=== PATIENT | male | born 1945 | race Caucasian/White ===

== ENCOUNTER 2017-03-27 13:00 | Inpatient (IN) | payer MEDICARE, OTHER ==
[~2017-03-27] VITALS: Ht 175.3 cm; Wt 112.9 kg
--- NOTE | ~2017-03-27 | DS ---
PATIENT'S NAME: VICENTE VENEGAS [facility] AGE: 71 Y [address] ROOM: [place] [address] LOCATION: [facility] ADMIT DATE: 04/01/2017 Discharge Summary DISCHARGE DATE: 04/03/2017 FAMILY PHYSICIAN: Floyd Wilson ATTENDING PHYSICIAN: Rashaun Kenny PRIMARY DIAGNOSIS: Degenerative joint disease of the right knee. SECONDARY DIAGNOSES: 1. Hypertension. 2. Obstructive sleep apnea. 3. Rheumatoid arthritis. 4. History of melanoma. 5. Chronic obstructive pulmonary disease. 6. Coronary artery disease. 7. Benign prostatic hypertrophy. 8. History of myocardial infarction x2. PROCEDURE PERFORMED: Right total knee arthroplasty. HISTORY: The patient is a 71-year-old male, who presents with advanced right knee degenerative joint disease and associated severely compromised activities of daily living. The patient has decided to proceed with total knee arthroplasty after having been thoroughly counseled regarding the risks, benefits, limitations and alternatives. Please refer to the outpatient clinic notes and admission history and physical for this patient. HOSPITAL COURSE: The patient underwent a right total knee arthroplasty on 04/01/2017 without complications. General endotracheal anesthesia plus adductor canal block plus periarticular local anesthesia was utilized. The patient received 24 hours of perioperative prophylactic antibiotics and remained hemodynamically stable, neurovascularly intact throughout the entire hospital course. The postoperative prophylactic deep venous thrombosis prophylaxis consisted of aspirin 325 mg, early mobilization and pneumatic compression devices. Daily physical therapy for gait training, transfer training range of motion and quadriceps isometric exercises were received. The patient progressed well in physical therapy. On the date of discharge, 04/03/2017, the incision at the knee was healing well and showed no signs of infection. DISPOSITION: Home. DISCHARGE ACTIVITY: The patient is to bear weight as tolerated with range of motion and quadriceps isometric exercises as instructed. The operative extremity is to be elevated at least 90% of the day. There is to be sterile PATIENT'S NAME: VICENTE VENEGAS [facility] AGE: 71 Y [address] ROOM: [place] [address] LOCATION: [facility] ADMIT DATE: 04/01/2017 Discharge Summary DISCHARGE DATE: 04/03/2017 FAMILY PHYSICIAN: Floyd Wilson ATTENDING PHYSICIAN: Rashaun Kenny 4x4 gauze dressings to the incision daily. Dr. Kenny is to be notified immediately if there is any increased pain, fevers, chills erythema or drainage. DISCHARGE MEDICATIONS: 1. Aspirin 325 mg 1 tab p.o. daily for 30 days for postoperative DVT prophylaxis. 2. Hydromorphone 2 mg 1 to 2 tabs p.o. every 4 hours p.r.n. for pain. 3. Diazepam 5 mg 1/2 to 1 tab p.o. every 6 hours p.r.n. for muscle spasms. The patient was then instructed to continue all his preadmission medications as instructed by his internal medicine physician. FOLLOWUP: Followup appointment is to be with Dr. Kenny's office on 04/08/2017 for his initial postoperative evaluation with x-rays and staple removal at that time. RADHA DIAMOND PA-C FOR MD NAHOMY AGUAYO/olivia /[id number] d: 04/08/17 2354 t: 04/09/17 0829, DISCHARGE SUMMARY
--- NOTE | ~2017-03-27 | OR ---
PATIENT'S NAME: PAUL VENEGAS [facility] AGE: 71 Y [address] ROOM: [place] [address] LOCATION: [facility] ADMIT DATE: 04/01/2017 OR/Procedure Report DISCHARGE DATE: FAMILY PHYSICIAN: Floyd Wilson ATTENDING PHYSICIAN: ZULEIMA SAUL SURGEON: Zuleima Saul MD OCEAN CLAM BOAT CAPTAIN: 1. LOU Licona. 2. Richi Tejada CST/SALES DEPARTMENT SUPERVISOR. DATE OF PROCEDURE: 04/01/2017 PRE-OP DIAGNOSIS: Degenerative joint disease right knee. POST-OP DIAGNOSIS: Degenerative joint disease right knee. OPERATION: Right total knee arthroplasty with computer navigation. ANESTHESIA: General endotracheal anesthesia plus adductor canal block plus periarticular local anesthesia (ropivacaine with epinephrine and Toradol). ESTIMATED BLOOD LOSS: Less than 10 mL. DRAIN: None. SPECIMEN: None. COMPLICATIONS: None. IMPLANT SYSTEM: Baltazar Triathlon Size 5 right posterior stabilized femoral component Size 5 universal modular tibial baseplate 13 mm posterior stabilized size 5 X3 tibial polyethylene insert 35 mm asymmetric X3 patella component(triple pegged). INDICATIONS FOR SURGERY: Paul is a 71-year-old male, who presents with advanced right knee degenerative joint disease and associated severely compromised activities of daily living. The patient has decided to proceed with knee replacement after having been thoroughly counseled regarding the associated risks, benefits, and limitations. We have specifically reviewed the risks and implications of infection, deep venous thrombosis, pulmonary embolism, mortality, neurovascular complications, blood transfusion (and associated potential for disease transmission or transfusion reaction), stiffness, instability, mechanical deterioration of the components (due to wear and or loosening), and the potential need for revision. We have also emphasized the importance of active involvement and compliance with post- operative physical therapy as a means of optimizing range of motion and PATIENT'S NAME: PAUL VENEGAS [facility] AGE: 71 Y [address] ROOM: [place] [address] LOCATION: [facility] ADMIT DATE: 04/01/2017 OR/Procedure Report DISCHARGE DATE: FAMILY PHYSICIAN: Floyd Wilson ATTENDING PHYSICIAN: ZULEIMA SAUL functional recovery. Informed consent has been granted. DESCRIPTION OF PROCEDURE: The patient was positioned supine after administration of anesthesia and prophylactic antibiotics. A well-padded pneumatic tourniquet was placed around the right proximal thigh, and the right lower extremity was prepped and draped with vigilant sterile technique. The patient's name as well as the intended operative side and procedure were confirmed with a verbal time-out involving myself, the circulating nurse, the scrub nurse, and the anesthesiologist. Examination under anesthesia demonstrated no active skin lesions or masses. There was a moderate effusion. There was no erythema. There was no abnormal warmth. Range of motion under anesthesia was from an 8-degree flexion contracture to 125 degrees of flexion. There was no ligamentous insufficiency. The right lower extremity was elevated and exsanguinated with an Esmarch wrap, and the pneumatic tourniquet was inflated to 300mmHg. The knee was approached through a longitudinal midline incision. A medial parapatellar arthrotomy was performed and the patella was everted. Examination of the joint space demonstrated a moderate amount of benign-appearing translucent synovial fluid. There was mild generalized non-proliferative synovitis. The anterior cruciate ligament was attenuated, but intact. There were large osteophytes at the intercondylar notch. The posterior cruciate ligaments were intact. There were small osteophytes at the superior and inferior margins of the patella as well as the superior, medial, and lateral margins of the femoral trochlea. There was high-grade partial-thickness articular cartilage loss throughout the majority of the patella. There was full-thickness loss of articular cartilage involving 80% of the medial femoral condyle and a 2.5 x 3 cm diameter region at the medial aspect of the medial tibial plateau. There was a 1 cm diameter region of high-grade partial-thickness articular cartilage loss at the posterior medial aspect of the lateral femoral condyle. There were moderate- sized osteophytes at the medial and lateral femoral condyles. There were moderate grade 3 degenerative changes at the medial half of the lateral tibial plateau including deep fissuring of the articular cartilage throughout this region. The lateral meniscus was intact. The medial meniscus was truncated. Remnants of the menisci and cruciate ligaments were excised. The Trudev navigation femoral tracker was pinned in place at the distal aspect of the femoral trochlea. Absence of motion between the femur and the tracking device was confirmed manually and visually. Femoral osseous landmarks were obtained in order to calibrate the computer navigation system. Landmarks included the center of rotation of the ipsilateral hip, the center-point of the distal femur, the femoral AP axis, 57 points on the medial femoral condyle PATIENT'S NAME: PAUL VENEGAS [facility] AGE: 71 Y [address] ROOM: [id number] [place], [place] [address] LOCATION: [facility] ADMIT DATE: 04/01/2017 OR/Procedure Report DISCHARGE DATE: FAMILY PHYSICIAN: Floyd Wlison ATTENDING PHYSICIAN: ZULEIMA SAUL articular surface, and 57 points on the lateral femoral condyle articular surface. The Gaelectric computer navigation system was subsequently utilized to position the distal femoral resection block such that the distal femoral resection was performed perfectly perpendicular to the femoral mechanical axis. The distal femoral resection was performed with a RFIDeas oscillating saw. The Gaelectric computer navigation tibial tracker was pinned in place at the anterior aspect of the tibial plateau. Absence of motion between the tibia and the tracking device was confirmed manually and visually. Tibial osseous landmarks were obtained in order to calibrate the computer navigation system. Landmarks included the center-point of the tibial plateau, the AP tibial axis, 57 points on the medial tibial plateau articular surface, 57 points on the lateral tibial plateau articular surface, the medial malleolus, and the lateral malleolus. The Gaelectric computer navigation system was subsequently utilized to position the proximal tibial resection block such that the proximal tibial resection was performed perfectly perpendicular to the tibial mechanical axis. The proximal tibial resection was performed with a Repunch Precision oscillating saw. Perpendicularity of the tibial resection with respect to the tibial shaft axis was reconfirmed by inserting a spacer- block attached to an extramedullary guide zachary. External rotation of the anterior and posterior femoral resections was set parallel to the epicondylar axis and carefully adjusted in order to create a rectangular flexion gap. The box resection was performed with a reciprocating saw. Anterior and posterior chamfer resections were performed with the oscillating saw. Posterior condyle osteophytes were excised with an osteotome. All other osteophytes were excised with a rongeur. Resection of all remnants of the menisci was reconfirmed. Flexion and extension gaps were confirmed to be symmetric and well balanced with a spacer-block technique. The patella resection was performed with an oscillating saw such that the composite thickness of the reconstructed patella was equivalent to the thickness of the hopi patella. Patella tracking was optimal, and there was no need for a lateral retinacular release. All trial components were removed and all prepared osseous surfaces were thoroughly irrigated with pulsatile saline lavage and dried prior to cementing all three components in a single stage using [place] Simplex cement containing pre-mixed tobramycin. All extruded excess cement was removed. The entire joint space was thoroughly inspected and thoroughly irrigated with bacteriostatic pulsatile saline lavage to assure that there was no residual debris of any sort. Final range of motion was from full extension (with no passive hyperextension) PATIENT'S NAME: PAUL VENEGAS [facility] AGE: 71 Y [address] ROOM: [address] [address] LOCATION: [facility] ADMIT DATE: 04/01/2017 OR/Procedure Report DISCHARGE DATE: FAMILY PHYSICIAN: Floyd Wilson ATTENDING PHYSICIAN: ZULEIMA SAUL to 130 degrees of flexion. Patella tracking was reconfirmed to be optimal. There was excellent anteroposterior stability at 90 degrees of flexion. There was 0 mm of medial lift-off to valgus stress in full extension. There was 1 mm of lateral lift-off to varus stress in full extension. The arthrotomy was closed with multiple simple and [id number] interrupted #1 Vicryl. Subcutaneous tissues were thoroughly re-irrigated with bacteriostatic pulsatile saline lavage. Subcutaneous tissues were re- approximated with simple buried interrupted #0 Vicryl sutures. The skin was closed with simple buried interrupted 2-0 Vicryl sutures followed by surgical bayron. The dressing consisted of Xeroform gauze, 4x4 gauze, ABD pads and two 6-inch Zay Wraps. There were no intra-operative complications. It should be noted that the physician's stores assistant played an active, integral role throughout this entire operation. By providing expert retraction, they greatly facilitated and expedited safe and effective exposure of the distal femur, proximal tibia and patella for preparation and implantation of the components. They were also actively involved in the patient's positioning, prepping and draping, as well as wound closure. MD ANA ROSA AGUAYO/olivia /[id number] d: 04/01/17 2135 t: 04/02/17 1210, OPERATIVE SUMMARY
[~2017-03-27 13:00] MED LIST: APRESOLINE10 MG PO; ASPIRIN (CHILDR81 MG PO; CARDIZEM CD (T240 MG PO; CARDURA8 MG PO; COREG25 MG PO; CPAP INH; FINASTERIDE5 MG PO; FLONASE 50 MCG/16 GM NOSE; FOLIC ACID1 MG PO; GLUCOSAMIN-CHO1 EACH PO; HYGROTON25 MG PO; K-TAB 10MEQ10 MEQ PO; LIPITOR20 M1 PO; METHOTREXATE2.5 MG PO; SYMBICORT 80-10.2 GM INH; ZESTRIL40 MG PO; [UNRECOGNIZED DRUG - OTHER] OPHTH
--- NOTE | 2017-04-01 17:39 | NUR ---
Significant Event: Pt up from PACU at 1735. VSS, CSM WNL. Slightly bradycardic, but take betablocker. Asymptomatic. 96% on RA. IV to left wrist intact. Voided 125mL per urinal. Taking Dilaudid for pain, last dose around 1715ish in PACU. Had general not spinal. Dressing C/D/I. Gal hose on, foot pumps in use. IS 10x/hr [place] x 48 hrs then PRN. 1st half hourly vs due at 1850. Follow up:
--- NOTE | 2017-04-02 04:27 | NUR ---
Significant Event: Pt A&Ox3. VS stable, remains on RA. Has extensive heart history and takes a lot of BP meds. Pain adequately controlled with jatinder tylenol, currently. No c/o numbness or tingling. No c/o nausea. Up last night to chair for a couple of hours. LS C/D. Wears CPAP @ HS. DIMITRIS wrap remains C/D/I. Moving all extremities equally. Eating and drinking well. PIV in RH, will SL prior to shift change. Follow up: Continue plan of care.
--- NOTE | 2017-04-02 11:24 | NUR ---
SPOKE TO PATIENT AND HIS SPOUSE AT THE BEDSIDE. INTRODUCED CM AND OUR ROLE. PATIENT LIVES IN OWN HOME WITH SPOUSE. HE HAS ALL HIS DME, PATIENT ANTICIPATES THAT HE WILL DISCHARGE HOME TOMORROW. HE DOES NOT ANTICPATE ANY DISCHARGE NEEDS AT THIS TIME.
--- NOTE | 2017-04-02 17:51 | NUR ---
Significant Event: Ambulates with one assist, walker and gaitbelt. Dressing C/D/I. Voids without difficulty. CSM WNL. Dilaudid 2mg and Tylenol 1000mg last at 1715. Wears C-Pap when sleeping, room air while awake. Plans to dismiss home tomorrow. Follow up:
--- NOTE | 2017-04-03 04:28 | NUR ---
Significant Event: Pt A&Ox3. VS stable, remains on RA. Pain adequately controlled with schedule tylenol and PRN pain meds. Dressing remains C/D/I. CSM remains intact. No c/o nausea. PIV in LH, SL. LS C/D. RA during the day, CPAP @ HS. Follow up: To d/c home today.
[2017-04-03] MEDS ORDERED: ARTIFICIAL TEA1 EAC1 IOC (12:24)
[2017-04-03] MEDS ORDERED: ECOTRIN325 MG PO (12:31)
[2017-04-03] MEDS ORDERED: COLACE100 MG PO (12:32)
[2017-04-03] MEDS ORDERED: PEPCID20 MG PO (12:33)
[2017-04-03] MEDS ORDERED: MIRALAX17 GM PO (12:34)
[2017-04-03] MEDS ORDERED: DILAUDID 2MG(HYD2 MG PO (12:38)
[2017-04-03] MEDS ORDERED: VALIUM5 MG PO (12:38)
--- NOTE | 2017-04-03 14:34 | NUR ---
Pt going home at 1420 with spouse. He is up with standby assist and does well with walker and gait belt. Pt elevates leg, ice to knee. Mepilex dressing intact to knee. Pt CSM WNL. Does bed exercises well and understands to do PT exercises 3 times a day. Pt has good I&O, Pain under control with dilaudid and rated 2-5 this shift. Pt and spouse verbalize understanding of discharge instructions, home meds, activity, etc. Pt discharged in stable condition to home. To front door per wheelchair. Has all belongings.
== END 2017-04-03 14:20 | disposition disaster alternative care site (69) | DRG 470 ==
LOC: G3N 04-01 10:23
PROVIDERS: ADMIT Orthopaedic Surgery
PROC: XR2G021 Monitoring of Right Knee Joint using Intraoperative Knee Replacement Sensor, Open Approach, New Technology Group 1 (ICD-10-PCS; principal; 2017-04-01)
PROC: 0SRC0J9 Replacement of Right Knee Joint with Synthetic Substitute, Cemented, Open Approach (ICD-10-PCS; principal; 2017-04-01)
DX: M17.11 Unilateral primary osteoarthritis, right knee (principal); M06.9 Rheumatoid arthritis, unspecified; J44.9 Chronic obstructive pulmonary disease, unspecified; G47.33 Obstructive sleep apnea (adult) (pediatric); I25.10 Atherosclerotic heart disease of native coronary artery without angina pectoris; I10 Essential (primary) hypertension; N40.0 Benign prostatic hyperplasia without lower urinary tract symptoms; I25.2 Old myocardial infarction; Z85.820 Personal history of malignant melanoma of skin; Z87.891 Personal history of nicotine dependence
CPT/HCPCS: C1713; C1776; J0690; J1100; J1885; J2001; J2250; J2795; J3010; J7120

== ENCOUNTER → 2017-03-28 | Outpatient (CLI) | payer MEDICARE, OTHER ==
[~2017-03-28] MED LIST changes: +ARTIFICIAL TEA1 EAC1 IOC; +COLACE100 MG PO; +DILAUDID 2MG(HYD2 MG PO; +ECOTRIN325 MG PO; +MIRALAX17 GM PO; +PEPCID20 MG PO; +VALIUM5 MG PO
== END ==
LOC: GNJRC 10:27
DX: Z01.818 Encounter for other preprocedural examination (principal); M17.12 Unilateral primary osteoarthritis, left knee